=== PATIENT | female | born 1985 | race Caucasian/White ===

== ENCOUNTER → 2020-11-14 | Outpatient (CLI) | payer BC | LOC: RAD 13:54 | DX: R31.29 Other microscopic hematuria (principal) ==

== ENCOUNTER 2021-04-18 11:08 | Emergency (ER) | payer BC ==
[~2021-04-18] VITALS: Ht 157.5 cm; Wt 51.8 kg
[2021-04-18] MEDS ORDERED: MULTI-VITAMIN1 EACH PO (11:33)
[2021-04-18] MEDS ORDERED: NUVARING VAGIN1 EACH VG (11:33)
[2021-04-18 11:52] LABS: BASO # 0.02 K/mm3 (0.02-0.10); EOS # 0.08 K/mm3 (0.04-0.40); EOS % 0.9 % (1.0-5.0); HEMATOCRIT 42.6 % (37.0-47.0); HEMOGLOBIN 14.1 g/dL (12.5-16.0); LYMPH# 0.82 K/mm3 (1.50-4.00); MEAN CELL VOLUME 87 fl (78-100); MEAN CORPUSCULAR HEMOGLOBIN 29 pg (27-31); MEAN CORPUSCULAR HGB CONC 33 g/dL (33-37); MEAN PLATELET VOLUME 9.5 fl (7.4-10.4); MONO # 0.52 K/mm3 (0.20-0.80); NEU # 7.56 K/mm3 (1.40-6.50); PLATELET COUNT 213 K/mm3 (130-400); RED CELL DISTRIBUTION WIDTH 11.7 % (11.5-14.5)
[2021-04-18 12:05] LABS: ALBUMIN 4.1 g/dL (3.5-5.0)
[2021-04-18 12:06] LABS: POTASSIUM 3.8 mmol/L (3.5-5.1)
[2021-04-18 12:07] LABS: CALCIUM 9.1 mg/dL (8.3-10.5)
[2021-04-18 12:08] LABS: TOTAL PROTEIN 7.6 g/dL (6.4-8.3)
[2021-04-18 12:10] LABS: TOTAL BILIRUBIN 1.6 mg/dL (0.2-1.2)
[2021-04-18 13:08] VITALS: BP 108/72
== END 2021-04-18 13:08 | disposition home or self-care (01) ==
LOC: ED 11:08
PROVIDERS: Physician Assistant
DX: U07.1 COVID-19 (principal)
CPT/HCPCS: J2765; J7030

== ENCOUNTER → 2021-11-06 | Outpatient (CLI) | payer BC ==
[~2021-11-06] MED LIST: MULTI-VITAMIN1 EACH PO; NUVARING VAGIN1 EACH VG
== END ==
LOC: RAD 10:00
DX: R51.9 Headache, unspecified (principal)
CPT/HCPCS: A9575